=== PATIENT | male | born 1940 | race Caucasian/White ===

== ENCOUNTER → 2019-11-29 13:04 | Outpatient (CLI) | payer MEDICARE, SELFPAY ==
--- NOTE | 2019-11-29 13:13 | XR_ITS ---
PROCEDURE: XR CHEST 2V CLINICAL HISTORY: COPD Smoker, shortness of breath COMPARISON: No exams were available for comparison FINDINGS: The cardiomediastinal silhouette and pulmonary vascularity are within normal limits. COPD. There is hyperinflation with attenuation of the peripheral pulmonary vessels. A nodular opacity overlies the left 6th rib anteriorly and may be due to nipple shadow. 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 Otherwise negative Dictated by: Talib Kaufman MD 11/29/2019 14:41 Electronically signed by Talib Kaufman MD in [place] 11/29/2019 14:41
== END ==
PROVIDERS: PCP Family Medicine; Visit Provider Family Medicine
DX: J44.9 Chronic obstructive pulmonary disease, unspecified (principal)
CPT/HCPCS: 71046

== ENCOUNTER → 2023-06-02 13:10 | Outpatient (CLI) | payer MEDICARE, SELFPAY ==
--- NOTE | 2023-06-02 13:17 | XR_ITS ---
FINAL REPORT CLINICAL HISTORY: RT HIP PAIN, S/p fall x 1 week ago FINDINGS: Right hip Three views were obtained. There is no acute fracture or dislocation. There are moderate degenerative changes in both hips and in the lower lumbar spine. No soft tissue abnormality is identified. IMPRESSION: Moderate degenerative changes. Reviewed, Interpreted and Dictated by Adrian Meek III, MD Transcribed by Nayeli Gonzalez Authenticated and [facility]
== END ==
PROVIDERS: PCP Family Medicine; Visit Provider Family Medicine
DX: M25.551 Pain in right hip (principal)
CPT/HCPCS: 73502

== ENCOUNTER 2023-07-06 18:35 | Emergency (ER) | payer MEDICARE, SELFPAY ==
[2023-07-06 18:35] VITALS: BP 143/68; PULSE 89; RESP 20; TEMP 36.6; O2SAT 96; BMI 24.4
--- NOTE | 2023-07-06 18:38 | XR_ITS ---
PROCEDURE INFORMATION: Exam: XR Right Hip Exam date and time: 07/06/2023 7:01 PM Age: 82 years old Clinical indication: Injury or trauma; Fall; Blunt trauma (contusions or hematomas); Injury details: Patient fell going to his chicken coop. Right hip pain. ; Additional info: Fall, hip injury TECHNIQUE: Imaging protocol: Radiologic exam of the right hip. Views: 2 or 3 views hip with pelvis when performed. Total images: 4 COMPARISON: CR XR HIP RT 2-3V W/PELVIS 06/02/2023 1:29 PM FINDINGS: Bones/joints: Acute mildly impacted subcapital right femoral neck fracture. Osteopenia. Moderate degenerative changes bilateral hips. No visualized acute pelvic fracture. Moderate degenerative changes lower lumbar spine. Mild degenerative changes bilateral SI joints. Soft tissues: Soft tissue swelling right hip. Gastrointestinal tract: Moderate rectal stool burden. Vasculature: Pelvic phleboliths. IMPRESSION: 1. Acute mildly impacted subcapital right femoral neck fracture. 2. Osteopenia and moderate degenerative changes.
[2023-07-06 19:00] VITALS: BP 143/68; PULSE 82; RESP 20; O2SAT 98
--- NOTE | 2023-07-06 19:01 | PC.NURSE ---
Pt family at [facility]
--- NOTE | 2023-07-06 19:02 | HMH.EDGENADL ---
Discharge Plan Disposition Patient Disposition: Left Against Medical Advice Condition: Fair Referrals Follow up/Referrals: Vincent Mckeon DO [Staff Physician] - See instructions Provider,Mayra, [Primary Care Provider] - See instructions Activity Restrictions/Add. Instructions Additional Instructions/Restrictions: You were evaluated in the emergency department today and diagnosed with a right hip fracture. For this, we recommended inpatient evaluation by orthopedics for possible repair. We do not have orthopedics here today, so recommended transfer to another hospital. You elected to leave AGAINST MEDICAL ADVICE. Please return to the emergency department or go to the nearest emergency department with orthopedics for further evaluation and management should you wish to be treated as an inpatient. Take Tylenol and ibuprofen at home as needed for pain. Do not put weight on your right lower extremity. This will make your fracture worse. If this fracture continues to go untreated, you could have and bony destruction to your right hip, worsening of condition, and may be even issue such as a blood clot. This could cause permanent loss of limb and/or life if you leave it untreated. Clinical Impressions Clinical Impression: Closed fracture of right hip Instructions Patient Instructions: DI for Hip Fracture Discharge ED Provider: Merary Alcala General Adult HPI General Chief complaint: Fall Stated complaint: Fall @ home, R hip sore Time Seen by Provider: 07/06/23 18:36 History of Present Illness HPI narrative: This patient is an 82-year-old male with a history of COPD presenting to the emergency department for evaluation with concern for fall at home. Patient reports that he was walking in wet grass to put his chickens up in the chicken coop, when he slipped and fell in the mud. He complains of right hip pain as a result of the fall. He has not been able to bear weight since the fall. Patient arrives by EMS he notes right hip pain but no other acute concerns. Patient denies any blood thinners or anticoagulation. He did not hit his head or lose consciousness. He reports that he was well prior to the fall. He states that he used to use a cane to walk, but he just got off the cane. Related Data Allergies Allergy/AdvReac Type Severity Reaction Status Date / Time INGREDIENT: NO KNOWN - NO Allergy Unknown Uncoded 06/29/17 15:14 KNOWN DRUG ALLERGY [facility] Disclaimer: The information contained in this section may have been updated after the patient was seen, as this information can be updated by other users. Social History Smoking Status: Current every day smoker alcohol intake: never current occupational status: retired Travel in the last 8 weeks: None ROS Obtained: Yes All systems reviewed & no additional complaints except as documented Physical Exam General General appearance: alert and in no apparent distress Head Head exam: atraumatic and normocephalic Eye Eye exam: Present normal appearance, PERRL and EOMI ENT ENT exam: Present normal exam, normal oropharynx, mucous membranes moist and normal external ear exam Neck Neck exam: Present normal inspection, full ROM and trachea midline; Absent tenderness Chest Chest inspection: Present normal inspection and symmetric chest wall rise; Absent tenderness Respiratory Respiratory exam: Present normal lung sounds bilaterally; Absent respiratory distress, wheezes, stridor or accessory muscle use Cardiovascular Cardiovascular exam: Present regular rate and normal rhythm Abdominal Exam Abdominal exam: Present soft; Absent distention, tenderness or guarding Extremities Exam Extremities exam: Present full ROM, tenderness (Right hip), normal capillary refill and other (All compartments soft. Neurovascularly intact distally.); Absent edema Back Exam Back exam: Present normal inspection and full R
--- NOTE | 2023-07-06 19:02 | PC.NURSE ---
Pt provided with urinal to attempt to obtain urine sample
--- NOTE | 2023-07-06 19:20 | PC.NURSE ---
Patient refusing CT scan.
--- NOTE | 2023-07-06 19:45 | PC.NURSE ---
rounded on patient, no needs at this time
--- NOTE | 2023-07-06 20:55 | PC.NURSE ---
Called [facility] per Dr Alcala for possible transfer of pt to [place] for Ortho. CR
--- NOTE | 2023-07-06 21:05 | PC.NURSE ---
Per Tea at [facility] they do have an Ortho bed available at [place]. Waiting to hear back from Dr Moreira the Ortho . CR
--- NOTE | 2023-07-06 21:15 | PC.NURSE ---
PC from transfer center, [place] is unable to accept patient
--- NOTE | 2023-07-06 21:49 | PC.NURSE ---
Patient does not want to go to other facilities family is trying to talk to patient at this time.
[2023-07-06 22:03] VITALS: BP 138/79; PULSE 85; RESP 18; TEMP 36.7
== END 2023-07-06 22:03 | disposition left against medical advice (07) ==
PROVIDERS: Emergency Provider Emergency Medicine
DX: S72.011A Unspecified intracapsular fracture of right femur, initial encounter for closed fracture (principal); J44.9 Chronic obstructive pulmonary disease, unspecified; F17.200 Nicotine dependence, unspecified, uncomplicated; W01.0XXA Fall on same level from slipping, tripping and stumbling without subsequent striking against object, initial encounter
CPT/HCPCS: 73502; 99285